=== PATIENT | female | born 1985 | race Caucasian/White ===

== ENCOUNTER → 2017-07-06 | Outpatient (CLI) | payer OTHER ==
[~2017-07-06] MED LIST: AZIT250 PO; CETI10 PO; CRANBERRY EXTRACT; FLUC100 PO; LEVFLO500 PO; OXYACE5T PO; PROM25 PO
[2017-07-07 14:05] LABS: HPV Genotype 16 Not Detected (NOTDET); HPV Genotype 18 Not Detected (NOTDET)
[2017-07-11 11:42] LABS: HPV High Risk Other Not Detected (NOTDET)
== END ==
LOC: LAB 12:11 → LAB SHORT 12:11
PROVIDERS: Advanced Practice Midwife
DX: Z01.419 Encounter for gynecological examination (general) (routine) without abnormal findings (principal)
CPT/HCPCS: 87624; G0123

== ENCOUNTER 2019-07-22 17:57 | Observation (INO) | payer OTHER ==
[~2019-07-22] VITALS: Ht 162.6 cm; Wt 118.5 kg
[2019-07-22 19:46] LABS: BASOPHILS ABSOLUTE AUTO 0.04 K/mm3 (0.00-0.23); BASOPHILS PERCENT AUTO 0 % (0-2); EOSINOPHILS PERCENT AUTO 0 % (0-6); Hematocrit 43.4 % (33.0-51.0); Hemoglobin 13.8 g/dL (11.5-16.0); IMMATURE GRAN ABSOLUTE AUTO 0.07 K/mm3 (0.00-0.10); IMMATURE GRAN PERCENT AUTO 1 % (0-1); LYMPHOCYTES ABSOLUTE AUTO 1.46 K/mm3 (0.84-5.20); LYMPHOCYTES PERCENT AUTO 11 % (21-46); MONOCYTES PERCENT AUTO 5 % (4-13); Mean Corpuscular HGB 27.7 pg (26.0-34.0); Mean Corpuscular HGB Conc 31.8 g/dL (31.5-36.5); Mean Corpuscular Volume 87 fL (80-100); Mean Platelet Volume 10.5 fL (9.1-12.4); NEUTROPHILS ABSOLUTE AUTO 10.85 K/mm3 (1.96-9.15); NEUTROPHILS PERCENT AUTO 83 % (41-73); Platelet Count 261 K/mm3 (150-400); RDW Coefficient Variation 13.4 % (11.7-14.2); RDW Standard Deviation 42.7 fL (35.1-46.3); Red Blood Cell Count 4.99 M/mm3 (3.80-5.20); White Blood Cell Count 13.12 K/mm3 (4.00-11.30)
[2019-07-22 20:03] LABS: Alanine Aminotransfer (ALT/SGP 99 U/L (12-78); Albumin, Blood 3.7 g/dL (3.4-5.0); Alk Phos 126 U/L (50-136); Anion Gap 4 mmol/L (6-16); Aspartate Aminotrans (AST/SGOT 179 U/L (12-37); Bilirubin, Total 0.4 mg/dL (0.1-1.0); Blood Urea Nitrogen 18 mg/dL (8-24); Bun/Creatinine Ratio 23.9 (12.0-20.0); CO2, Blood 27 mmol/L (21-32); Chloride, Blood 110 mmol/L (98-108); Creatinine, Blood 0.75 mg/dL (0.40-1.00); Globulin, Blood 3.7 g/dL (2.2-4.0); Glomerular Filtration Rate >60 (60-); Glucose, Blood 108 mg/dL (70-99); Potassium, Blood 3.7 mmol/L (3.5-5.5); Sodium, Blood 141 mmol/L (136-145); Total Protein, Blood 7.4 g/dL (6.4-8.2)
[2019-07-22] MEDS ORDERED: Temazepam15 MG PO (20:57)
[2019-07-22] MEDS ORDERED: VYVANSE40 MG PO (20:57)
[2019-07-22] MEDS ORDERED: MONT10T PO (21:03)
[2019-07-22] MEDS ORDERED: LOSA50 PO (21:04)
[2019-07-22] MEDS ORDERED: HYDCHL25 PO (21:04)
[2019-07-22] MEDS ORDERED: Vitamin D2000 UNIT PO (21:04)
[2019-07-22] MEDS ORDERED: TIZA4 PO (21:06)
[2019-07-22] MEDS ORDERED: VENL150ER PO (21:06)
[2019-07-22] MEDS ORDERED: PRENATAL TABLE1 EAC2 PO (21:06)
--- NOTE | 2019-07-22 22:18 | NUR ---
PT ARRIVED TO UNIT VIA GURNEY TRANSFERED TO BED IND, NO ASSIST NEEDED. NO WEAKNESS NOTED. IV INFUSING NS AT 125/HR. PT DENIES PAIN AND NAUSEA AT THIS TIME. CURRENTLY SITTING UP IN BED. ORIENTED TO UNIT. DENIES FURTHER NEEDS AT THIS TIME.
[2019-07-22] MEDS ORDERED: MAGNESIUM OXID500 MG PO (22:25)
[2019-07-22] MEDS ORDERED: ALBU90OI INH (22:27)
--- NOTE | 2019-07-23 07:37 | NUR ---
SHIFT SUMMARY NO ACUTE CHANGES SINCE ARRIVAL TO UNIT. PT UP AND AMBULATING IND, NO WEAKNESS NOTED. FLUIDS INFUSING DURING THE NIGHT. DENIES PAIN AND NAUSEA. PLAN IS FOR CONSULT TODAY.
[2019-07-23 08:58] LABS: BASOPHILS ABSOLUTE AUTO 0.02 K/mm3 (0.00-0.23); BASOPHILS PERCENT AUTO 1 % (0-2); EOSINOPHILS ABSOLUTE AUTO 0.01 K/mm3 (0.00-0.68); EOSINOPHILS PERCENT AUTO 0 % (0-6); Hematocrit 37.3 % (33.0-51.0); Hemoglobin 11.9 g/dL (11.5-16.0); IMMATURE GRAN ABSOLUTE AUTO 0.01 K/mm3 (0.00-0.10); IMMATURE GRAN PERCENT AUTO 0 % (0-1); LYMPHOCYTES PERCENT AUTO 27 % (21-46); MONOCYTES ABSOLUTE AUTO 0.45 K/mm3 (0.16-1.47); MONOCYTES PERCENT AUTO 10 % (4-13); Mean Corpuscular HGB 27.6 pg (26.0-34.0); Mean Corpuscular HGB Conc 31.9 g/dL (31.5-36.5); Mean Corpuscular Volume 87 fL (80-100); Mean Platelet Volume 10.5 fL (9.1-12.4); NEUTROPHILS ABSOLUTE AUTO 2.69 K/mm3 (1.96-9.15); NEUTROPHILS PERCENT AUTO 61 % (41-73); Platelet Count 195 K/mm3 (150-400); RDW Coefficient Variation 13.4 % (11.7-14.2); RDW Standard Deviation 42.5 fL (35.1-46.3); Red Blood Cell Count 4.31 M/mm3 (3.80-5.20); White Blood Cell Count 4.38 K/mm3 (4.00-11.30)
[2019-07-23 09:20] LABS: Alanine Aminotransfer (ALT/SGP 529 U/L (12-78); Alk Phos 140 U/L (50-136); Anion Gap 2 mmol/L (6-16); Aspartate Aminotrans (AST/SGOT 518 U/L (12-37); Bilirubin, Total 0.7 mg/dL (0.1-1.0); Blood Urea Nitrogen 15 mg/dL (8-24); Bun/Creatinine Ratio 20.7 (12.0-20.0); CO2, Blood 27 mmol/L (21-32); Calcium, Blood 8.4 mg/dL (8.5-10.1); Chloride, Blood 112 mmol/L (98-108); Creatinine, Blood 0.73 mg/dL (0.40-1.00); Glomerular Filtration Rate >60 (60-); Glucose, Blood 88 mg/dL (70-99); Potassium, Blood 3.8 mmol/L (3.5-5.5); Sodium, Blood 141 mmol/L (136-145)
--- NOTE | 2019-07-23 18:47 | NUR ---
DISCHARGE PT DISCHARGED HOME FROM UNIT AT APROX 1840. PT GIVEN WRITTEN AND VERBAL DISCHARGE INSTRUCTIONS AND VERBALIZED UNDERSTANDING OF THESE INSTRUCTIONS. IV REMOVED AND TOLERATED WELL. DECLINED WHEELCHAIR TO CAR, AMBULATED INDEPENDENTLY.
== END 2019-07-23 18:41 | disposition home or self-care (01) ==
LOC: ER 17:57 → SURS 17:58
PROVIDERS: Nurse Practitioner; ADMIT Surgery
DX: R10.9 Unspecified abdominal pain (principal); J45.909 Unspecified asthma, uncomplicated; I10 Essential (primary) hypertension; Z79.899 Other long term (current) drug therapy
CPT/HCPCS: 36415; 76705; 78227; 80053; 83690; 85025; 93005; 93010; 96374; 96376; 99285-25; A9537; G0378; J1885; J3010; J7030; J7120